=== PATIENT | male | born 1980 | race Caucasian/White ===

== ENCOUNTER 2017-09-04 06:28 | Emergency (ER) | payer OTHER ==
[~2017-09-04] VITALS: Ht 172.7 cm; Wt 111.1 kg
[~2017-09-04 06:28] MED LIST: ATEN25TA PO; ATEN50TA PO; BUSP5TAB3 PO; CALC100067 PO; FERR325T28 PO; GABA600T2 PO; NICO-463 BC; NICO4GUM38 BC; PROP50TA3 PO; VENL150C58 PO; WARF-68 PO
[2017-09-04] MEDS ORDERED: LORAZEPAM 0.5 MG TABLET PO ONE (06:45)
[2017-09-04] MEDS ORDERED: LORAZEPAM 1 MG TABLET ONE (06:49)
[2017-09-04 06:58] VITALS: BP 136/98
--- NOTE | 2017-09-04 06:58 | NUR ---
Patient discharged to home in stable conditon. Written and verbal after care instructions given. Patient verbalizes understanding of instructions. Pt ambulated out of ER in steady gait. NAD noted. All belongings with pt. VSS.
== END 2017-09-04 06:59 | disposition home or self-care (01) ==
LOC: ER 06:30
DX: F15.10 Other stimulant abuse, uncomplicated (principal); F12.10 Cannabis abuse, uncomplicated; Z79.01 Long term (current) use of anticoagulants; Z79.899 Other long term (current) drug therapy
CPT/HCPCS: A4663